=== PATIENT | male | born 1940 | race Caucasian/White ===

== ENCOUNTER 2020-11-03 22:28 | Emergency (ER) | payer OTHER, MEDICARE ==
[~2020-11-03] VITALS: Ht 180.3 cm; Wt 73.5 kg
[2020-11-04] MEDS ORDERED: SINEMET 25-1001 EAC1 PO (01:18)
== END 2020-11-04 01:16 | disposition home or self-care (01) ==
LOC: ER 22:28
DX: S01.81XA Laceration without foreign body of other part of head, initial encounter (principal); W01.198A Fall on same level from slipping, tripping and stumbling with subsequent striking against other object, initial encounter
CPT/HCPCS: 12013; 70450; 99283-25